=== PATIENT | male | born 1985 | race Two or more races ===

== ENCOUNTER → 2017-07-24 | Outpatient (REF) | payer OTHER ==
[2017-07-24 13:17] LABS: SEMEN APPEARANCE OPAQUE (OPAQUE); SEMEN VISCOSITY VISCOUS (LIQUID); SEMEN VOLUME 3.8 ml (4.0-5.0)
[2017-07-24 13:18] LABS: IMMOTILITY 67 %; NON PROGRESSIVE MOTILITY (c) 8 %; PROGRESSIVE MOTILITY (a) 25 % (>=32); SEMEN pH 7.5 (7.0-8.0); SPERM CONCENTRATION 116.4 M/ml (>=15.0); TOTAL MOTILITY 33 % (>=40); WBC CONCENTRATION <=1 M/ml (<=1 M/ml)
[2017-07-24 13:19] LABS: % NORMAL FORMS 5 % (>=4); SPERM# 442.2 M/Ejac (>=39); TOTAL FUNCTIONAL 13.6 M/Ejac.; TOTAL PROGRESSIVE SPERM 110.1 M/Ejac.
== END ==
LOC: M LAB REF 12:25
DX: N46.9 Male infertility, unspecified (principal)
CPT/HCPCS: 89320

== ENCOUNTER → 2017-09-15 | Outpatient (REF) | payer OTHER ==
[2017-09-15 13:10] LABS: % NORMAL FORMS 12 % (>=4); IMMOTILITY 37 %; NON PROGRESSIVE MOTILITY (c) 14 %; PROGRESSIVE MOTILITY (a) 49 % (>=32); SEMEN APPEARANCE OPAQUE (OPAQUE); SEMEN VISCOSITY LIQUID (LIQUID); SEMEN pH 8.5 (7.0-8.0); SPERM ABNORMAL FORMS WBC'S NOTED; SPERM CONCENTRATION 49.8 M/ml (>=15.0); SPERM# 149.3 M/Ejac (>=39); TOTAL MOTILITY 63 % (>=40); WBC CONCENTRATION >1 M/ml (<=1 M/ml)
[2017-09-15 13:11] LABS: TOTAL FUNCTIONAL 19.5 M/Ejac.; TOTAL PROGRESSIVE SPERM 73.5 M/Ejac.
== END ==
LOC: M LAB REF 12:42
DX: N46.8 Other male infertility (principal)
CPT/HCPCS: 89320

== ENCOUNTER 2018-03-23 19:32 | Emergency (ER) | payer OTHER ==
[2018-03-23] MEDS ORDERED: MORPHINE 10 MG/ML 1ML VIAL (J2270) IV ONE (20:30)
[2018-03-23] MEDS ORDERED: NS 1,000 ML IV ONE (20:30)
[2018-03-23 20:46] LABS: BASO % 0.6 % (0.0-1.0); EOS # 0.1 10^3/uL (0.0-0.50); EOS % 0.7 % (0.0-3.0); HEMATOCRIT 40.6 % (42.0-52.0); HEMOGLOBIN 12.2 g/dl (13.5-17.5); LYMPH # 1.9 10^3/uL (1.5-4.5); MEAN CORPUSCULAR HEMOGLOBIN 20.8 pg (27.0-33.0); MEAN CORPUSCULAR VOLUME 69.2 fl (80.0-96.0); MONO # 0.3 10^3/uL (0.0-0.8); MONO % 4.9 % (0.0-5.0); NEUTROPHILS # 4.4 10^3/uL (1.8-7.7); NEUTROPHILS % 65.7 % (36.0-66.0); PLATELET COUNT, AUTOMATED 320 10^3/uL (150-450); RED BLOOD COUNT 5.87 10^6/uL (4.30-6.10); WHITE BLOOD COUNT 6.7 10^3/uL (4.0-10.0)
[2018-03-23 20:56] LABS: INR 1.1; PROTHROMBIN TIME 14.3 SECONDS (12.1-14.4)
[2018-03-23 20:57] LABS: PARTIAL THROMBOPLASTIN TIME 28.9 SECONDS (25.4-37.6)
[2018-03-23 21:00] LABS: BLOOD UREA NITROGEN 19 MG/DL (7-18); CALCIUM LEVEL 8.6 MG/DL (8.5-10.1); CARBON DIOXIDE LEVEL 26 MEQ/L (21-32); CHLORIDE LEVEL 110 MEQ/L (98-107); CREATININE FOR GFR 1.34 MG/DL (0.70-1.30); GLOMERULAR FILTRATION RATE > 60.0 (>60); GLUCOSE, FASTING 88 MG/DL (70-100); POTASSIUM SERUM 4.4 MEQ/L (3.5-5.1); SODIUM LEVEL 143 MEQ/L (136-145)
[2018-03-23] MEDS ORDERED: PROPOFOL 200 MG/20 ML VIAL As Ordered ONE (21:28)
[2018-03-23] MEDS ORDERED: PROPOFOL 200 MG/20 ML VIAL IV ONE (21:45)
[2018-03-23] MEDS ORDERED: NORCO 5/325MG TABLET (BULK FOR ED) PO ONE (22:15)
[2018-03-23] MEDS ORDERED: VICO5TAB16 PO (22:15)
[2018-03-23 22:20] VITALS: BP 127/60
--- NOTE | 2018-03-24 08:13 | REP ---
Left ankle two views: There is anterior and medial dislocation of the distal tibia in relation to the talus. There is a spiral fracture of the distal fibular shaft with one shaft width posterior displacement of the distal fracture fragment. There is questionably a posterior malleolar fracture. No medial malleolar fracture is identified on the views provided. Impression: Fracture dislocation as described. Electronically Signed by Sean Walton MD 03/24/2018 08:05 A
--- NOTE | 2018-03-24 08:14 | REP ---
Left ankle post reduction two views: The dislocation of the distal tibia has been satisfactorily reduced. The displaced fracture of the distal fibula has been satisfactorily reduced. There is a nondisplaced posterior malleolar fracture seen to better advantage on the current study. There is a fiberglass splint. Electronically Signed by Sean Walton MD 03/24/2018 08:06 A
== END 2018-03-23 22:51 | disposition home or self-care (01) ==
LOC: M ED 19:32 → EDBD 19:32 → M ED 22:51
DX: S82.832A Other fracture of upper and lower end of left fibula, initial encounter for closed fracture (principal); S93.02XA Subluxation of left ankle joint, initial encounter; X50.9XXA Other and unspecified overexertion or strenuous movements or postures, initial encounter; Y92.410 Unspecified street and highway as the place of occurrence of the external cause
CPT/HCPCS: 27752; 36415; 73600; 80048; 85025; 85610; 85730; 99285; J2270